=== PATIENT | female | born 1970 | race Caucasian/White ===

== ENCOUNTER 2020-03-26 13:31 | Emergency (ER) | payer OTHER ==
[~2020-03-26] VITALS: Ht 165.1 cm; Wt 120.3 kg
--- NOTE | 2020-03-26 13:46 | NUR ---
Pt very anxious and crying in triage she doesnt want to lose her legs, pt informed no one has said that and that her legs are just swollen and to let the docotor evaluate her first.
[2020-03-26] MEDS ORDERED: BENA1TAB10 PO (13:56)
[2020-03-26] MEDS ORDERED: LEVO150T PO (13:56)
--- NOTE | 2020-03-26 14:04 | NUR ---
THIS IS A 49 YO F W/ C/O BILAT SWELLING AND PAIN IN HER HANDS AND FROM HER HIPS TO HER KNEE CAPS. PT REPORTS SHE HAS HAD THIS PAIN FOR MONTHS BUT HAS BEEN WORSENING OVER THE PAST MONTH. PT STATES SHE [facility] HOURS [facility] [employer] SO SHE HAS BEEN PUSHING OFF BEING SEEN. PT LUIS, SURJIT. PT IS RESTING ON RF Code W/ CALL LIGHT IN REACH AND AT BEDSIDE FOR ED EVAL. FAMILY AT BEDSIDE. AWAITING ORDERS.
[2020-03-26] MEDS ORDERED: HYDROcodone/APAP 5/325 TABLET ONE (14:12)
--- NOTE | 2020-03-26 14:15 | NUR ---
MED REC DONE, LAB IN ROOM.
[2020-03-26 14:25] LABS: BASOPHILS # (AUTO) 0.03 x10^3/uL (0-0.1); BASOPHILS % (AUTO) 0 % (0-1); EOSINOPHILS # (AUTO) 0.11 x10^3/uL (0-0.4); EOSINOPHILS % (AUTO) 2 % (1-7); LYMPHOCYTES # (AUTO) 0.71 x10^3/uL (1-3.4); LYMPHOCYTES % (AUTO) 11 % (22-44); MD NO; MEAN CORPUSCULAR HEMOGLOBIN 30.1 pg (27.0-34.8); MEAN CORPUSCULAR HGB CONC 33.1 g/dL (32.4-35.8); MEAN CORPUSCULAR VOLUME 90.8 fL (80-100); MEAN PLATELET VOLUME 7.5 fL (7.4-10.4); MONOCYTES # (AUTO) 0.42 x10^3/uL (0.2-0.8); MONOCYTES % (AUTO) 6 % (2-9); NEUTROPHILS # (AUTO) 5.47 x10^3/uL (1.8-6.8); NEUTROPHILS % (AUTO) 81 % (42-75); PLATELET COUNT 205 x10^3/uL (130-400); RED BLOOD COUNT 4.46 x10^6/uL (3.82-5.3); RED CELL DISTRIBUTION WIDTH 13.6 % (9.6-15.2)
[2020-03-26] MEDS ORDERED: HYDROcodone/APAP 5/325 TABLET PO ONE (14:30)
[2020-03-26 14:38] LABS: ALANINE AMINOTRANSFERASE 23 U/L (12-78); ALBUMIN 3.7 g/dL (3.4-5.0); ANION GAP 5 mmol/L (5-15); CALCIUM 9.1 mg/dL (8.5-10.1); CHLORIDE 107 mmol/L (98-107); CREATININE 0.89 mg/dL (0.55-1.02)
[2020-03-26 14:48] LABS: ALKALINE PHOSPHATASE 79 U/L (45-117); BILIRUBIN,TOTAL 0.5 mg/dL (0.2-1.0); TOTAL PROTEIN 8.4 g/dL (6.4-8.2)
[2020-03-26 15:02] LABS: FREE T4 (FREE THYROXINE) 1.07 ng/dL (0.76-1.46)
[2020-03-26 15:41] VITALS: BP 133/62
== END 2020-03-26 16:07 | disposition home or self-care (01) ==
LOC: ED 14:10
DX: M25.542 Pain in joints of left hand (principal); M25.541 Pain in joints of right hand; I10 Essential (primary) hypertension
CPT/HCPCS: 36415; 80053; 84439; 84443; 84550; 85025; 86140; 86430; 99283